=== PATIENT | female | born 1930 | race Two or more races ===

== ENCOUNTER 2017-01-06 11:33 | Emergency (ER) | payer SELFPAY ==
[~2017-01-06 11:33] MED LIST: ALBUTEROL2.5 MG/0.1 NEB; ALEVE220 M4 PO; ASPIR 8181 M1 PO; ATORVASTATIN CA80 M1 PO; COLACE100 M1 PO; FLAGYL250 M1 PO; HYDROCODON-ACE1 EA16 PO; LIDODERM700 MG TP; MYRBETRIQ25 M1 PO; NITROGLYCERIN0.4 M2 SL; NORCO 5-325 TA1 EACH PO; PLAVIX75 M1 PO; PROTONIX20 M2 PO; QUESTRAN PACKET4 G1 PO; TRIBENZOR 20-51 EAC1 PO; TYLENOL325 M2 PO; ULTRAM50 M1 PO; ZOFRAN ODT4 MG PO
[2017-01-06] MEDS ORDERED: HYDROCHLOROTHIA25 M1 PO (13:37)
[2017-01-06] MEDS ORDERED: NORVASC10 M2 PO (13:38)
[2017-01-06] MEDS ORDERED: LOPERAMIDE2 M2 PO (14:14)
[2017-01-06] MEDS ORDERED: ASPIRIN81 M1 PO (14:14)
[2017-01-06] MEDS ORDERED: NEXIUM 24HR22.3 MG PO (14:14)
[2017-01-06 14:25] LABS: BASO % 0.6 % (0-2); EOSINOPHIL ABSOLUTE COUNT 0.1 tho/cmm (0.0-0.7); HCT-HEMATOCRIT 43.3 % (34.0-49.0); HGB-HEMOGLOBIN 14.9 gm/dl (12.0-15.5); IMMATURE GRANULOCYTES ABSOLUTE 0.01 tho/cmm (0-0.03); IMMATURE GRANULOCYTES PERCENT 0.3 % (0-0.3); LYMPH % 42.5 % (20-45); LYMPH ABSOLUTE COUNT 1.5 tho/cmm (0.8-4.5); MCHC MEAN CORPUSCULAR HGB CONC 34.4 % (32.0-36.0); MCV (MEAN CELL VOLUME) 81.2 fl (82.0-96.0); MONO % 8.4 % (0-12); MONOCYTE ABSOLUTE COUNT 0.3 tho/cmm (0.0-1.2); NEUTROPHIL ABSOLUTE COUNT 1.5 tho/cmm (1.6-8.0); NEUTROPHIL-AUTOMATED 1.5 tho/cmm (1.6-8.0); NEUTROPHILS % 44.2 % (40-80); PLATELET COUNT 228 tho/cmm (150-450); RED BLOOD COUNT 5.33 mil/cmm (4.00-5.20); RED CELL DISTRIBUTION WIDTH 13.1 % (12.4-16.4); WHITE BLOOD COUNT 3.5 tho/cmm (4.0-10.0)
[2017-01-06 14:42] LABS: ANION GAP 11 mmol/L (0-20); BLOOD UREA NITROGEN 16 mg/dl (6-24); CALCIUM 8.9 mg/dl (8.5-10.5); CARBON DIOXIDE-VENOUS 28 mmol/L (22-32); CHLORIDE 104 mmol/l (96-110); CREATININE 0.89 mg/dl (0.50-1.10); GLUCOSE 86 mg/dL (70-110); POTASSIUM 3.6 mmol/L (3.7-5.1); SODIUM 139 mmol/L (135-145); eGFR VALUE FOR BLACK 67 mL/Min
[2017-01-06] MEDS ORDERED: PREDNISONE20 M1 PO (15:04)
[2017-01-06] MEDS ORDERED: ULTRAM50 M1 PO (15:04)
[2017-04-21] MEDS ORDERED: NORCO 5-325 TA1 EACH PO (21:06)
[2017-04-25] MEDS ORDERED: HYDROCODON-ACE1 EA16 PO (00:04)
== END 2017-01-06 15:11 ==
LOC: EDMED 11:33
PROVIDERS: Emergency Medicine
DX: M50.30 Other cervical disc degeneration, unspecified cervical region (principal); M75.101 Unspecified rotator cuff tear or rupture of right shoulder, not specified as traumatic; I10 Essential (primary) hypertension